=== PATIENT | male | born 2000 | race Caucasian/White ===

== ENCOUNTER 2019-06-14 13:34 | Emergency (ER) | payer OTHER ==
[~2019-06-14] VITALS: Ht 170.2 cm; Wt 59.1 kg
[2019-06-14 13:35] VITALS: BP 130/80
[2019-06-14] MEDS ORDERED: CEPHALEXIN 500 MG CAP PO ONE (14:00)
[2019-06-14] MEDS ORDERED: KEFL500C17 PO (14:15)
[2019-06-14] MEDS ORDERED: IBUP80TA PO (14:16)
== END 2019-06-14 14:26 | disposition home or self-care (01) ==
LOC: M ED 13:34
DX: S61.203A Unspecified open wound of left middle finger without damage to nail, initial encounter (principal); W26.0XXA Contact with knife, initial encounter; Y92.018 Other place in single-family (private) house as the place of occurrence of the external cause; F17.210 Nicotine dependence, cigarettes, uncomplicated